=== PATIENT | female | born 1960 | race Caucasian/White ===

== ENCOUNTER → 2017-04-09 | Outpatient (CLI) | payer BC ==
[~2017-04-09] MED LIST: ACET1TAB84 PO; ALPR0.25 PO; CALCTAB7 PO; CYAN10002 INH; ESCI1TAB10 PO; MULT-506 PO; RANI150T3 PO; ZOLP10TA PO
[2017-04-09 11:17] LABS: BASO % 0.4 %; BASO ABS # 0.03 K/uL (0-0.2); HEMATOCRIT 29.4 % (37-47); IG% 0.1 %; LYMPH % 14.1 %; LYMPH ABS # 1.01 K/uL (1.2-3.4); MEAN CELL VOLUME 95.5 fL (80-100); MEAN CORPUSCULAR HEMOGLOBIN 28.9 pg (25-34); MEAN CORPUSCULAR HGB CONC 30.3 g/dl (32-36); MEAN PLATELET VOLUME 10.4 fL (7.4-10.4); MONO % 10.5 %; NEUT % 68.9 %; PLATELET COUNT 447 K/uL (130-400); RED BLOOD COUNT 3.08 M/uL (4.2-5.4); WHITE BLOOD COUNT 7.17 K/uL (4.8-10.8)
[2017-04-09 12:04] LABS: COMPLETE YES
[2017-04-09 14:33] LABS: BLOOD UREA NITROGEN 10 mg/dl (7-18); BUN/CREATININE RATIO 19.4 (10-20); CALCIUM 8.5 mg/dl (8.5-10.1); CARBON DIOXIDE 31 mmol/L (21-32); CHLORIDE 105 mmol/L (98-107); CREATININE 0.53 mg/dl (0.60-1.20); GLUCOSE 89 mg/dl (70-99); POTASSIUM 3.8 mmol/L (3.5-5.1); SODIUM 141 mmol/L (136-145)
== END | disposition home or self-care (01) ==
LOC: C.LABBC 09:12
PROVIDERS: ATTEND Physician Assistant Medical
DX: E53.8 Deficiency of other specified B group vitamins (principal); D50.9 Iron deficiency anemia, unspecified; R53.83 Other fatigue

== ENCOUNTER → 2017-04-26 | Outpatient (CLI) | payer BC ==
[2017-04-26 18:17] LABS: HEMATOCRIT 34.3 % (37-47); MEAN CELL VOLUME 95.8 fL (80-100); MEAN CORPUSCULAR HEMOGLOBIN 29.9 pg (25-34); MEAN CORPUSCULAR HGB CONC 31.2 g/dl (32-36); MEAN PLATELET VOLUME 11.9 fL (7.4-10.4); PLATELET COUNT 392 K/uL (130-400); RED BLOOD COUNT 3.58 M/uL (4.2-5.4)
== END | disposition home or self-care (01) ==
LOC: C.LABPVFM 13:43
PROVIDERS: ATTEND Physician Assistant Medical
DX: D50.9 Iron deficiency anemia, unspecified (principal)

== ENCOUNTER → 2017-10-12 | Outpatient (CLI) | payer BC ==
[2017-10-12 10:10] LABS: BASO % 1.2 %; BASO ABS # 0.08 K/uL (0-0.2); EOS % 3.7 %; EOS ABS # 0.25 K/uL (0-0.5); HEMATOCRIT 36.6 % (37-47); HEMOGLOBIN 11.6 g/dL (12.0-16.0); IG# 0.01 K/uL (0.00-0.02); LYMPH % 16.4 %; LYMPH ABS # 1.12 K/uL (1.2-3.4); MEAN CELL VOLUME 91.3 fL (80-100); MEAN CORPUSCULAR HEMOGLOBIN 28.9 pg (25-34); MEAN CORPUSCULAR HGB CONC 31.7 g/dl (32-36); MEAN PLATELET VOLUME 11.4 fL (7.4-10.4); MONO % 10.5 %; MONO ABS # 0.72 K/uL (0.11-0.59); NEUT % 68.1 %; NEUT ABS # 4.65 K/uL (1.4-6.5); PLATELET COUNT 338 K/uL (130-400); RED CELL DISTRIBUTION WIDTH CV 15.3 % (11.5-14.5); RED CELL DISTRIBUTION WIDTH SD 51.5 fL (36.4-46.3); WHITE BLOOD COUNT 6.83 K/uL (4.8-10.8)
--- NOTE | 2017-10-12 10:10 | DIAGNOSTIC IMAGING REPORT ---
ULTRASOUND ABDOMEN COMPLETE CLINICAL HISTORY: Dysuria. Nausea. COMPARISON STUDY: Abdominal CT dated 10/23/2013. TECHNIQUE: Real-time, grayscale, and color flow sonography of the abdomen was performed. Images are reviewed in the transverse and longitudinal planes. FINDINGS: Liver: The liver is normal in size and echotexture. There is no intrahepatic biliary ductal dilatation. The main portal vein is patent. Gallbladder: Tiny gallbladder polyps are incidentally noted and measure up to 2 mm. The gallbladder is otherwise normal in appearance. No gallstones are identified. There is no gallbladder wall thickening or pericholecystic fluid. A sonographic Nunez's sign is reportedly absent. The common bile duct measures up to 0.6 cm in diameter. Pancreas: Visualized portions of the pancreatic head and body are normal in appearance. Spleen: The spleen is normal in size and echotexture, measuring 8.7 cm in length. Kidneys: The kidneys are normal in size and echotexture. There is no hydronephrosis. The right kidney measures 11.1 cm in length and the left kidney measures 10.4 cm in length. No shadowing calculi are identified. A subcentimeter cyst is incidentally noted in the right upper pole. Abdominal vasculature: Visualized portions of the abdominal aorta and IVC are normal as imaged. Ascites: None. IMPRESSION: No acute abnormality is identified. No gallstones are seen. Electronically signed by: Jan Jean M.D. 10/12/2017 10:09 AM Dictated Date/Time: 10/12/2017 10:07 AM
[2017-10-12 10:30] LABS: ALBUMIN 3.8 gm/dl (3.4-5.0); ALT/SGPT 28 U/L (12-78); AST/SGOT 22 U/L (15-37); BLOOD UREA NITROGEN 11 mg/dl (7-18); CALCIUM 8.4 mg/dl (8.5-10.1); CARBON DIOXIDE 31 mmol/L (21-32); CREATININE 0.59 mg/dl (0.60-1.20); GLUCOSE 84 mg/dl (70-99); LIPASE 152 U/L (73-393); POTASSIUM 3.8 mmol/L (3.5-5.1); SODIUM 138 mmol/L (136-145)
[2017-10-12 10:40] LABS: ALKALINE PHOSPHATASE 141 U/L (45-117); TOTAL PROTEIN 7.2 gm/dl (6.4-8.2)
[2017-10-12 11:39] LABS: HEMOGLOBIN A1C 5.6 % (4.5-5.6)
== END | disposition home or self-care (01) ==
LOC: C.ULTR 09:11
PROVIDERS: ATTEND Physician Assistant Medical
DX: R11.0 Nausea (principal); R39.9 Unspecified symptoms and signs involving the genitourinary system

== ENCOUNTER → 2017-12-20 | Outpatient (CLI) | payer BC ==
--- NOTE | 2017-12-20 14:56 | MAMMOGRAPHY REPORT ---
BILATERAL DIGITAL DIAGNOSTIC MAMMOGRAM TOMOSYNTHESIS WITH CAD AND TARGETED BILATERAL ULTRASOUND: 12/20 CLINICAL HISTORY: A small 6 mm mass was seen within the left upper outer breast on a recent shoulder CT, for which additional imaging evaluation was recommended. The patient reports that she has had en larged lymph nodes in the past and has had an extensive workup; she has undergone multiple biopsies o f lymph nodes, including an excision of a left inguinal lymph node in 2007 which yielded follicular a nd interfollicular hyperplasia. TECHNIQUE: Breast tomosynthesis in addition to standard 2D mammography was performed. Current study was also evaluated with a Computer Aided Detection (CAD) system. Bilateral CC and MLO 2D and tomosyn thesis images were obtained. COMPARISON: Comparison is made to exams dated: 03/27/2016 mammogram, 03/23/2015 mammogram, 03/18/2014 m ammogram, 03/17/2013 mammogram, 03/12/2012 mammogram, and 03/13/2011 mammogram - [facility] enter. BREAST COMPOSITION: There are scattered areas of fibroglandular density in both breasts. FINDINGS: There is a circumscribed oval 8 mm mass within the left upper outer quadrant overlying the left pectoralis muscle, which is stable compared to multiple prior exams and has the appearance of an intramammary lymph node. This likely corresponds with the mass seen on the CT scan. There are enla rged bilateral axillary lymph nodes which appear slightly increased compared to prior exams although the lymph nodes have always been prominent on all available prior mammograms dating back to 2008. Th e remainder of both breasts demonstrate no suspicious masses, calcifications, or areas of architectur al distortion. A biopsy clip is again noted within the left lower inner quadrant. A few scattered b enign-appearing calcifications are stable. Targeted ultrasound was performed of the left upper outer quadrant in the region of the mass seen on the CT scan. In the left axillary tail region, there is a morphologically normal intramammary lymph node which has an echogenic fatty hilum and central internal vascularity, measuring 7 x 3 x 5 mm. Th is corresponds with the stable mammographic mass as well as the mass seen on the CT scan and is luis fernando tible with an intramammary lymph node. Targeted ultrasound was performed of bilateral axillary regio ns, which shows multiple abnormally enlarged lymph nodes which demonstrate abnormal cortical thickeni ng. The lymph nodes in the left axilla appears slightly more prominent to those in the right axilla. IMPRESSION: ACR BI-RADS CATEGORY 4: SUSPICIOUS, TARGETED ULTRASOUND ACR BI-RADS CATEGORY 4: SUSPICIO US 1. Morphologically normal 7 mm lymph node seen within the left axillary tail, which corresponds with the mass seen on the CT scan. The mass has been stable mammographically dating back to 2008 and is considered benign. 2. Abnormally enlarged bilateral axillary lymph nodes, left side slightly more prominent than the ri ght. The lymph nodes appear slightly more enlarged compared to prior mammograms. The patient report s that she has had multiple prior workups for abnormal lymph nodes, including an excision of an ingui nal lymph node in 2007 which yielded follicular hyperplasia. Recommend clinical follow-up; if additi onal biopsies are desired, then recommend ultrasound-guided biopsy of one of the left axillary lymph nodes. 3. No mammographic evidence of malignancy within either breast. Recommend routine bilateral screenin g mammograms in one year. A phone call was made to the physician's office to confirm faxed results were received. The patient has been verbally notified of the results. Approximately 10% of breast cancers are not detected with mammography. A negative mammographic report should not delay biopsy if a clinically suggestive mass is present. Martha Demarco M.D. ah/:12/20/2017 09:34:05 Attending Technologist: Allie Alaniz, [facility] Swatch Cutter: Mariaelena OBRIEN(Dean)(M), [facility] letter sent: Abnormal 4/5 BI-RADS Code: ACR BI-RADS Category 4: Suspicious Ultrasound BI-RADS: ACR BI-RADS Category 4: Suspici ous
== END | disposition home or self-care (01) ==
LOC: C.MAMM 08:08
PROVIDERS: ATTEND Internal Medicine
DX: N63.20 Unspecified lump in the left breast, unspecified quadrant (principal); R59.0 Localized enlarged lymph nodes

== ENCOUNTER → 2018-01-02 | Outpatient (CLI) | payer BC ==
--- NOTE | 2018-01-02 09:49 | Discharge Instructions ---
Discharge Instructions Procedure Procedure Date: January 02, 2018. Reason for visit: Left Axillary Lymph Node. Discharge Discharge Date: January 02, 2018. Discharge Diagnosis: post left axillary lymph node biopsy Instructions Activity Recommendations: Additional Limitations (see below) Return to School/Work: no limitations Recommended Home Diet: No Limitations Provider Instructions: ACTIVITY RECOMMENDATIONS: * No lifting, pushing, pulling or exercising the affected side for three days. RETURN TO SCHOOL/WORK: * You may return to work/school after the procedure, but do not perform any strenuous activities for 24 to 48 hours. MEDICATIONS: * Tylenol (two 325 mg) every four to six hours if needed for mild pain (if not allergic to Tylenol). DIET: * Resume previous diet. SPECIAL CARE INSTRUCTIONS: * Keep biopsy site dry for 24 hours. May shower after 24 hours, but do not soak (bathe) incision. * May remove Tegaderm (plastic patch) tomorrow AFTER showering. * Leave the steri-strips on for one week. Allow the steri-strips to fall off by themselves. If not off after one week, you may remove them. You may place a Bandaid crosswise over the strips, if desired. * Apply ice 10 minutes on and 10 minutes off as needed. * Wear a bra at bedtime to sleep more comfortably for 2-3 days. * Your referring physician should have the results after approximately 5 to 7 business days. * Call for unusual bleeding, fever, drainage, etc or if you have any questions call [phone] during normal business hours or after hours call Dr Ocampo, . FOLLOW UP VISIT: Follow-up with Referring Physician as scheduled. Allergies Coded Allergies: Acetaminophen (Verified Allergy, Mild, 12/22/14) Latex (Verified Allergy, Mild, RASH, 12/22/14) LOCALIZED REACTION Oxycodone (Verified Allergy, Mild, 12/22/14) Alendronate (Unverified Allergy, Unknown, UNKNOWN, 12/22/14) Diphenhydramine (Unverified Allergy, Unknown, UNKNOWN, 10/23/13) Pertussis Toxoid (Verified Allergy, Unknown, ., 12/22/14) Pertussis Vaccine (Verified Allergy, Unknown, UNKNOWN, 12/22/14) Nikki Leal Recommendations: Call your doctor if: * Temperature above 101 degrees * Pain not relieved by pain medicine ordered * There is increased drainage or redness from any incision * You have any unanswered questions or concerns. Your Doctors Instructions noted above were prepared by provider Maddie Ocampo. Patient Signature Section: Patient Instructions Signature Page Rashad Avelar Patient (or Guardian) Signature/Date: I have read and understand the instructions given to me by my caregivers. Caregiver/RN/Doctor Signature/Date: The above-named patient and/or guardian has received patient instructions on this date. + Original Patient Signature Page (only) stays with chart. Please make copy for patient.
--- NOTE | 2018-01-02 15:44 | MAMMOGRAPHY REPORT ---
ULTRASOUND GUIDED BIOPSY LEFT BREAST: 01/02/2018 CLINICAL HISTORY: Enlarged bilateral axillary lymph nodes with thickened cortices. 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 COMPARISON: Comparison is made to exams dated: 12/20/2017 mammogram, 12/20/2017 ultrasound, 03/27/2016 mammogram, 03/23/2015 mammogram, 03/18/2014 mammogram, and 03/17/2013 mammogram - [facility]. PATIENT CONSENT: The procedure, risks and benefits were discussed with the patient and informed conse nt was obtained both verbally and in writing. Specific risks to this procedure include: bleeding, in fection, puncture of adjacent structure, nontarget biopsy, sampling error, pain, metal allergy and me dication reaction. PROCEDURE DESCRIPTION: A time out was performed and the left axillary lymph node was agreed as the si te of biopsy. The skin of the left axilla was prepped and draped in the usual sterile fashion. The mo st prominent lymph node with a thickened cortex was chosen as the target for biopsy. Subcutaneous and intraparenchymal 1% buffered lidocaine, with and without epinephrine, was administered as local anes thesia. A skin incision was made. Through the incision, 5 samples were taken with an 18 gauge Quick Core biopsy device. An orb a postprocedure left MLO view was obtained but the biopsy marker clip is n ot identified given the far superior and medial axillary position. No shaped metallic marker was ivet rsoalee at the biopsy site. Hemostasis was achieved after manual compression. The patient tolerated the p rocedure well and there was no immediate complication. The samples were sent to the pathology depart ment in an appropriately labeled container. A postprocedure left MLO tomosynthesis view was obtained. The biopsy marker clip is not identified g iven the far superior/deep axillary location of the biopsied lymph node. No postbiopsy hematoma is s een of the visualized left axilla. IMPRESSION: ULTRASOUND GUIDED BIOPSY Status post ultrasound-guided core biopsy of a morphologically abnormal left axillary lymph node, wit h orb-shaped biopsy marker clip placed at the site. The patient will receive notification of the biopsy results from her referring physician. Maddie Ocampo M.D. ay/:01/02/2018 12:53:03 Collector: Ruthie OBRIEN(Dean)(M), [facility]
--- NOTE | 2018-01-02 15:47 | MAMMOGRAPHY REPORT ---
UNILATERAL LEFT DIGITAL DIAGNOSTIC MAMMOGRAM TOMOSYNTHESIS WITH CAD: 01/02/2018 CLINICAL HISTORY: Status post ultrasound-guided core biopsy of an enlarged lymph node with thickened cortex in the left axilla. Please refer to the report from left axillary lymph node biopsy performed at the same time for full d etail. IMPRESSION: POST PROCEDURE IMAGING FOR MARKER PLACEMENT Please refer to the report from left axillary lymph node biopsy performed at the same time for full d etail. Approximately 10% of breast cancers are not detected with mammography. A negative mammographic report should not delay biopsy if a clinically suggestive mass is present. Maddie Ocampo M.D. ay/:01/02/2018 09:48:16 Instant Powder Supervisor: Allie OBRIEN(R)(M), [facility] BI-RADS Code: Post Procedure Imaging For Marker Placement
== END | disposition home or self-care (01) ==
LOC: C.MAMM 08:39
PROVIDERS: ATTEND Internal Medicine
DX: R59.0 Localized enlarged lymph nodes (principal)